=== PATIENT | female | born 1965 | race Caucasian/White ===

== ENCOUNTER 2018-08-08 13:16 | Emergency (ER) | payer OTHER, MEDICARE, MEDICAID ==
[~2018-08-08] VITALS: Ht 162.6 cm; Wt 59.1 kg
[~2018-08-08 13:16] MED LIST: AMOXICILLIN500 MG PO; BACTRIM DS1 TAB PO; CIPRO500 MG OR; HYDROXYZ PAM50 M1 PO; LAMICTAL25 MG PO; NAPROSYN500 MG PO; PROVENTIL HFA IN; QUETIAPINE FUM400 MG PO; REXULTI3 MG PO; SEROQUEL XR150 MG PO; SUBOXONE1 MI1 SL; ULTRAM50 M1 PO; ULTRAM50 MG OR
[2018-08-08] MEDS ORDERED: TORADOL PO (15:16)
[2018-08-08] MEDS ORDERED: FLEXERIL PO (15:16)
[2018-08-08 15:51] VITALS: BP 138/81
== END 2018-08-08 15:51 | disposition home or self-care (01) | DRG 563 ==
LOC: ED 13:16
DX: S29.012A Strain of muscle and tendon of back wall of thorax, initial encounter (principal); S46.911A Strain of unspecified muscle, fascia and tendon at shoulder and upper arm level, right arm, initial encounter; S96.911A Strain of unspecified muscle and tendon at ankle and foot level, right foot, initial encounter; F17.200 Nicotine dependence, unspecified, uncomplicated; V59.50XA Passenger in pick-up truck or van injured in collision with unspecified motor vehicles in traffic accident, initial encounter